=== PATIENT | female | born 1995 | race Hispanic/Latino ===

== ENCOUNTER 2017-06-28 11:49 | Inpatient (IN) | payer BC ==
[2017-06-28] MEDS ORDERED: Sodium Chloride 0.9% 1,000 ML IV STA (12:44)
[2017-06-28] MEDS ORDERED: Iohexol 240 (50 ml) PO STA (12:45)
[2017-06-28] MEDS ORDERED: Iohexol 240 (50 ml) ONE (12:53)
--- NOTE | 2017-06-28 12:54 | ED PDOC ---
HPI: Abdomen Time Seen by Provider: 06/28/17 12:33 Chief Complaint (Nursing): Abdominal Pain Chief Complaint (Provider): Right Lower Quadrant Abdominal Pain History Per: Patient History/Exam Limitations: no limitations Onset/Duration Of Symptoms: Days (x1) Current Symptoms Are (Timing): Constant Location Of Pain/Discomfort: RLQ Quality Of Discomfort: "Pain" Associated Symptoms: Nausea, Vomiting, Diarrhea Exacerbating Factors: None Alleviating Factors: None Additional Complaint(s): 22 year old female presents to the ED complaining of constant right lower quadrant abdominal pain. The patient states that her pain began yesterday and has been consistent till now and radiates to her right lower back. She reports that she was seen at urgent care ([facility]) and told to present to the emergency department for evaluation of her appendix. Patient also notes some nausea, vomiting and diarrhea(non bloody, watery). Denies fever, chest pain, shortness of breath, back pain, dysuria, vaginal bleeding, pelvic pain, vaginal discharge. Abnormal Vaginal Bleeding: No Past Medical History Reviewed: Historical Data, Nursing Documentation, Vital Signs Vital Signs: Last Vital Signs Temp 98.4 F 06/28/17 12:01 Pulse 90 06/28/17 12:01 Resp 16 06/28/17 12:01 BP 136/94 H 06/28/17 12:01 Pulse Ox 97 06/28/17 12:59 - Medical History PMH: No Chronic Diseases - Surgical History Surgical History: No Surg Hx - Family History Family History: States: Unknown Family Hx - Social History Current smoker - smoking cessation education provided: No Ex-Smoker (has not smoked in the last 12 months): No Alcohol: Social Drugs: Denies - Allergies Allergies/Adverse Reactions: Allergies Allergy/AdvReac Type Severity Reaction Status Date / Time No Known Allergies Allergy Verified 06/28/17 12:44 Review of Systems ROS Statement: Except As Marked, All Systems Reviewed And Found Negative Constitutional: Negative for: Fever Cardiovascular: Negative for: Chest Pain Respiratory: Negative for: Shortness of Breath Gastrointestinal: Positive for: Nausea, Vomiting, Abdominal Pain (Riht lower quadrant), Diarrhea Genitourinary Female: Negative for: Dysuria, Vaginal Discharge, Vaginal Bleeding , Pelvic Pain Musculoskeletal: Negative for: Back Pain Physical Exam - Reviewed Nursing Documentation Reviewed: Yes Vital Signs Reviewed: Yes - Physical Exam Appears: Positive for: Non-toxic, No Acute Distress Head Exam: Positive for: ATRAUMATIC, NORMAL INSPECTION, NORMOCEPHALIC Skin: Positive for: Normal Color, Warm, Dry. Negative for: Rash Eye Exam: Positive for: Normal appearance, EOMI, PERRL. Negative for: Nystagmus ENT: Positive for: Normal ENT Inspection. Negative for: Nasal Congestion, Tonsillar Exudate Neck: Positive for: Normal, Painless ROM, Supple Cardiovascular/Chest: Positive for: Regular Rate, Rhythm, Chest Non Tender. Negative for: Tachycardia Respiratory: Positive for: Normal Breath Sounds. Negative for: Rales, Rhonchi, Wheezing, Respiratory Distress Gastrointestinal/Abdominal: Positive for: Bowel Sounds, Soft, Tenderness ( tenderness to right lower quadrant and right lower pelvis). Negative for: Guarding, Rebound Back: Positive for: Normal Inspection. Negative for: L CVA Tenderness, R CVA Tenderness Extremity: Positive for: Normal ROM. Negative for: Tenderness, Deformity, Swelling Neurologic/Psych: Positive for: Alert, Oriented - Laboratory Results Result Diagrams: 06/28/17 13:00 06/28/17 13:00 Interpretation Of Abn Labs: no acute - ECG O2 Sat by Pulse Oximetry: 97 (RA) Pulse Ox Interpretation: Normal - CT Scan/US ct Other Rad Studies (CT/US): Read By Radiologist Other Rad Interpretation: appendix not visualized - Progress ED Course And Treament: 1651: Spoke with surgery. Will consult. Pt. with no antibiotics and will continue monitoring. Spoke with Dr. Johnson. Will admit medsurg. Medical Decision Making Medical Decision Makin Initial Impression 22 year old female presenting with right lower quadrant abdominal pain Initial Plan: * CMP * Udip * CBC * NS 200ml IV 200mls/hr * Pepcid 10mg IVP * US Abdomen Limited * Reevaluation Documented by Danya Campo acting as a scribe for Darryn Zarco MD. All medical record entries made by the Scribe were at my direction and personally dictated by me. I have reviewed the chart and agree that the record accurately reflects my personal performance of the history, physical exam, medical decision making, and the department course for this patient. I have also personally directed, reviewed, and agree with the discharge instructions and disposition. Disposition - Clinical Impression Clinical Impression: Abdominal pain - Patient ED Disposition Is Patient to be Admitted: Yes Counseled Patient/Family Regarding: Studies Performed, Diagnosis - Disposition Disposition Time: 16:55 Condition: FAIR - POA Present On Arrival: None
[2017-06-28] MEDS ORDERED: Iohexol 300 100 ML IJ ONE (13:06)
[2017-06-28] MEDS ORDERED: Sodium Chloride 0.9% 100 ML ONE (13:06)
[2017-06-28 13:19] LABS: BASO % 0.5 % (0.0-2.0); EOS % 0.4 % (0.0-4.0); HEMOGLOBIN 13.3 g/dL (12.0-16.0); LYMPH # 1.8 K/uL (1.0-4.3); LYMPH % 21.8 % (20.0-40.0); MEAN CELL VOLUME 95.3 fl (81.0-99.0); MEAN CORPUSCULAR HGB CONC 34.6 g/dL (33.0-37.0); MEAN PLATELET VOLUME 8.2 fl (7.2-11.7); MONO # 0.5 K/uL (0.0-0.8); MONO % 6.3 % (0.0-10.0); NEUT # 5.9 K/uL (1.8-7.0); RBC 4.02 Mil/uL (3.80-5.20); RED CELL DISTRIBUTION WIDTH 12.3 % (11.5-14.5); WHITE BLOOD COUNT 8.2 K/uL (4.8-10.8)
[2017-06-28 13:35] LABS: ALB/GLOB RATIO 1.5 (1.0-2.1); ALBUMIN 4.5 g/dL (3.5-5.0); ALT/SGPT 25 U/L (9-52); AST/SGOT 22 U/L (14-36); BLOOD UREA NITROGEN 12 mg/dl (7-17); CALCIUM 9.3 mg/dL (8.4-10.2); GFR AFRICAN-AMERICAN > 60; GFR NON-AFRICAN AMERICAN > 60
--- NOTE | 2017-06-28 14:33 | US ---
HISTORY: Vaginal bleeding COMPARISON: No prior study available TECHNIQUE: Transvaginal sonographic evaluation of the pelvis. The FINDINGS: UTERUS: Uterus is anteverted retroverted measuring approximately 6.1 x 3.9 x 4.7 cm. Normal in size and appearance. No fibroid or other mass lesion seen. ENDOMETRIUM: Measures 5 mm in diameter. Unremarkable. CERVIX: No cervical abnormality identified. RIGHT OVARY: Prominent right ovary measuring approximately 6.8 x 2.6 x 3.7 cm. No solid mass. Normal flow. LEFT OVARY: Measures 3.8 x 2.0 x 3.7 prominent cm. No solid mass. Normal flow. . There is a small apparent paraovarian cyst measuring approximately 1.4 x 1.5 x 1.3 cm. FREE FLUID: Free fluid is present within the cul de sac. OTHER FINDINGS: None. IMPRESSION: Prominent right ovary. Small apparent paraovarian cyst left ovary. Free fluid is present within the cul de sac.
--- NOTE | 2017-06-28 15:56 | CT ---
PROCEDURE: CT scan abdomen and pelvis dated 06/28/2017 HISTORY: Abdominal pain COMPARISON: None. TECHNIQUE: Contiguous axial images of the abdomen and pelvis performed following oral and intravenous injection of approximately 98 cc of Omnipaque 300 contrast material. En. Coronal and Sagittal reformats generated. Radiation dose: Total exam DLP = 706.55 mGy-cm This CT exam was performed using one or more of the following dose reduction techniques: Automated exposure control, adjustment of the mA and/or kV according to patient size, and/or use of iterative reconstruction technique. FINDINGS: LOWER THORAX: Lung bases clear. No infiltrate effusion or basilar pneumothorax. There is a tiny hiatal hernia. Heart size normal. No significant pericardial effusion. LIVER: Liver exhibits normal size measuring approximately 16.7 cm in CC dimension. Note is made of a tiny area low attenuation inferior tip of the right lobe liver that probably represents streak and beam hardening artifact arising from dense oral contrast material within the adjacent colon. Minor diffuse fatty hepatic infiltration. . Portal and splenic veins are opacified. GALLBLADDER AND BILE DUCTS: Gallbladder is physiologically distended. No evidence of intraluminal gallbladder calculi. PANCREAS: Pancreas appears grossly unremarkable. SPLEEN: Spleen is unremarkable. No evidence of masses collections or calcifications. ADRENALS: There are no adrenal lesions. KIDNEYS AND URETERS: Is demonstrate symmetric nephrograms. No evidence of nephrolithiasis or hydronephrosis. BLADDER: Urinary bladder is physiologically distended. No evidence of intraluminal urinary bladder calculi. REPRODUCTIVE: Uterus appears grossly unremarkable. There is a moderate amount of free fluid in the pelvis which exhibits Hounsfield units in the upper 30s suggesting proteinaceous content. Rule out residual old hemorrhagic ovarian cyst. Rule out APPENDIX: The appendix is not seen with any certainty. Correlation with history physical exam and laboratory values recommended as the possibility of an acute appendicitis cannot be excluded based on this exam. BOWEL: Evaluation of the bowel is limited due to incomplete opacification. The stomach is distended with oral contrast material and air. Visualized loops of small bowel exhibit normal contour and caliber. No evidence acute mechanical small bowel obstruction. PERITONEUM: Unremarkable. No fluid collection. No free air. LYMPH NODES: Several small mesenteric lymph nodes seen right lower quadrant of the abdomen. Rule out mesenteric adenitis. VASCULATURE: Unremarkable. No aortic aneurysm. BONES: No fracture or destructive lesion. OTHER FINDINGS: None. IMPRESSION: There is a moderate to large amount of free fluid within the pelvis that exhibits Hounsfield units in the low 30s suggesting proteinaceous content. Rule out hemorrhagic ovarian cyst. The appendix is not seen with certainty on this exam. Correlation with history, physical exam and laboratory values recommended as the possibility of an acute appendicitis cannot be excluded on this exam. There are a few small lymph nodes right lower quadrant of the abdomen suggesting underlying mild mesenteric adenitis Mild fatty hepatic infiltration. Findings discussed with Dr. Zarco at approximately 3:52 p.m. with written down and read back verification.
--- NOTE | 2017-06-28 17:47 | CP.PCM.CON ---
<Ric Ochoa - Last Filed: 06/28/17 18:00> History of Present Illness - History of Present Illness History of Present Illness: General Surgery: Dr Lu Pt is a 22F with no PMH who presents with >24 hours of RLQ abdominal pain. Pt states initially she thought pain was menstrual cramping as her LMP terminated yesterday, however pain persisted and intensified through the day. Pt visited urgent care where she was sent to ED for evaluation to r/o appendicitis. Pt reports 2 episodes of emesis, yellow, and previous food. Denies any further N/V , F/C. Having normal bowel movements. States she is hungry. At time of examination pain has significantly improved. PMH: none PSH: knee arthroscopy Review of Systems - Review of Systems All systems: reviewed and no additional remarkable complaints except (as per hpi ) Past Patient History - Past Social History Alcohol: Social Drugs: Denies - PSYCHIATRIC Hx Substance Use: No - SURGICAL HISTORY Other/Comment: lt knee SX - ANESTHESIA Hx Anesthesia: Yes Hx Anesthesia Reactions: No Meds Allergies/Adverse Reactions: Allergies Allergy/AdvReac Type Severity Reaction Status Date / Time No Known Allergies Allergy Verified 06/28/17 12:44 Physical Exam - Constitutional Appears: Non-toxic, No Acute Distress - Head Exam Head Exam: NORMAL INSPECTION - Eye Exam Eye Exam: Normal appearance - ENT Exam ENT Exam: Mucous Membranes Moist - Respiratory Exam Respiratory Exam: absent: Accessory Muscle Use, Respiratory Distress - Cardiovascular Exam Cardiovascular Exam: REGULAR RHYTHM. absent: Tachycardia - GI/Abdominal Exam GI & Abdominal Exam: Soft, Tenderness (RLQ but minimal). absent: Distended, Firm, Guarding, Hernia - Extremities Exam Extremities exam: Negative for: pedal edema - Neurological Exam Neurological exam: Alert, Oriented x3 - Psychiatric Exam Psychiatric exam: Normal Affect, Normal Mood - Skin Skin Exam: Normal Color, Warm Results - Vital Signs Recent Vital Signs: Last Vital Signs Temp 98.4 F 06/28/17 12:01 Pulse 90 06/28/17 12:01 Resp 16 06/28/17 12:01 BP 136/94 H 06/28/17 12:01 Pulse Ox 97 06/28/17 17:09 - Labs Result Diagrams: 06/28/17 13:00 06/28/17 13:00 Labs: Laboratory Results - last 24 hr 06/28/17 06/28/17 13:00 13:00 WBC 8.2 RBC 4.02 Hgb 13.3 Hct 38.4 MCV 95.3 MCH 33.0 H MCHC 34.6 RDW 12.3 Plt Count 238 MPV 8.2 Neut % (Auto) 71.0 Lymph % (Auto) 21.8 [place] % (Auto) 6.3 Eos % (Auto) 0.4 Baso % (Auto) 0.5 Neut # (Auto) 5.9 Lymph # (Auto) 1.8 [place] # (Auto) 0.5 Eos # (Auto) 0.0 Baso # (Auto) 0.0 Sodium 142 Potassium 4.1 Chloride 106 Carbon Dioxide 25 Anion Gap 15 BUN 12 Creatinine 0.7 Est GFR ( Amer) > 60 Est GFR (Non-Af Amer) > 60 Random Glucose 88 Calcium 9.3 Total Bilirubin 0.9 AST 22 ALT 25 Alkaline Phosphatase 55 Total Protein 7.4 Albumin 4.5 Globulin 2.9 Albumin/Globulin Ratio 1.5 Assessment & Plan - Assessment and Plan (Free Text) Assessment: 22F w/ RLQ pain; r/o appendicitis Plan: CT scan reviewed by myself and attending pain has nearly resolved no leukocytosis appendicitis unlikely pt admitted for observation recc Receptionist Nurse consult for evaluation of prominent right ovary, possibly ruptured maintain NPO until tomorrow d/w Dr Lu who has seen and evaluated pt Don, PGY3 <Joshua Lu - Last Filed: 06/28/17 18:12> History of Present Illness - History of Present Illness History of Present Illness: Patient was seen and examined at the bedside. Agree with resident's note above. Meds - Medications Medications: Current Medications Sodium Chloride (Sodium Chloride 0.9%) 1,000 mls @ 100 mls/hr IV .Q10H MIKO Stop: 06/29/17 18:03 Ketorolac Tromethamine (Toradol) 15 mg IVP Q6 PRN PRN Reason: Pain, Mild (1-3) Results - Vital Signs Recent Vital Signs: Last Vital Signs Temp 98.4 F 06/28/17 12:01 Pulse 90 06/28/17 12:01 Resp 16 06/28/17 12:01 BP 136/94 H 06/28/17 12:01 Pulse Ox 97 03/03/18 17:09 - Labs Result Diagrams: 06/28/17 13:00 06/28/17 13:00 Labs: Laboratory Results - last 24 hr 06/28/17 06/28/17 13:00 13:00 WBC 8.2 RBC 4.02 Hgb 13.3 Hct 38.4 MCV 95.3 MCH 33.0 H MCHC 34.6 RDW 12.3 Plt Count 238 MPV 8.2 Neut % (Auto) 71.0 Lymph % (Auto) 21.8 [place] % (Auto) 6.3 Eos % (Auto) 0.4 Baso % (Auto) 0.5 Neut # (Auto) 5.9 Lymph # (Auto) 1.8 [place] # (Auto) 0.5 Eos # (Auto) 0.0 Baso # (Auto) 0.0 Sodium 142 Potassium 4.1 Chloride 106 Carbon Dioxide 25 Anion Gap 15 BUN 12 Creatinine 0.7 Est GFR ( Amer) > 60 Est GFR (Non-Af Amer) > 60 Random Glucose 88 Calcium 9.3 Total Bilirubin 0.9 AST 22 ALT 25 Alkaline Phosphatase 55 Total Protein 7.4 Albumin 4.5 Globulin 2.9 Albumin/Globulin Ratio 1.5 - Imaging and Cardiology CT scan - abdomen Status: Image reviewed by me, Report reviewed by me Assessment & Plan - Assessment and Plan (Free Text) Plan: - Repeat labs in am
[2017-06-28] MEDS: Sodium Chloride 0.9% 1,000 ML IV SCH ×2 (18:15→19:30)
[2017-06-29] MEDS: Sodium Chloride 0.9% 1,000 ML IV SCH ×2 (06:54→15:25)
[2017-06-29 07:01] LABS: BASO % 0.7 % (0.0-2.0); EOS # 0.1 K/uL (0.0-0.7); EOS % 1.4 % (0.0-4.0); HEMOGLOBIN 11.4 g/dL (12.0-16.0); LYMPH # 2.3 K/uL (1.0-4.3); LYMPH % 46.9 % (20.0-40.0); MEAN CELL VOLUME 96.4 fl (81.0-99.0); MEAN CORPUSCULAR HEMOGLOBIN 33.1 pg (27.0-31.0); MEAN CORPUSCULAR HGB CONC 34.3 g/dL (33.0-37.0); MONO # 0.5 K/uL (0.0-0.8); NRBC % 0.1 % (0.0-0.0); RBC 3.44 Mil/uL (3.80-5.20); RED CELL DISTRIBUTION WIDTH 12.6 % (11.5-14.5); WHITE BLOOD COUNT 4.8 K/uL (4.8-10.8)
[2017-06-29 07:09] LABS: BLOOD UREA NITROGEN 15 mg/dl (7-17); CALCIUM 8.7 mg/dL (8.4-10.2); GFR AFRICAN-AMERICAN > 60; GFR NON-AFRICAN AMERICAN > 60; HDL CHOLESTEROL 55 MG/DL (30-70)
[2017-06-29 07:17] LABS: LDL CHOLESTEROL 83 mg/dL (0-129)
[2017-06-29 07:22] LABS: T4 6.44 ug/dl (5.5-11.0)
[2017-06-29 07:35] LABS: T3 0.964 nmol/L (1.49-2.60)
[2017-06-29 08:53] LABS: SQUAMOUS EPITHIAL 10 /hpf (0-5); URINE BACTERIA FEW (<OCC); URINE BILIRUBIN NEGATIVE (NEGATIVE); URINE BLOOD MODERATE (NEGATIVE); URINE CLARITY CLOUDY (Clear); URINE COLOR YELLOW (YELLOW); URINE GLUCOSE (UA) NEG (Normal); URINE LEUKOCYTE ESTERASE MOD Leu/uL (Negative); URINE NITRATE NEGATIVE (NEGATIVE); URINE PROTEIN 30 mg/dL (NEGATIVE); URINE UROBILINOGEN 0.2-1.0 mg/dL (0.2-1.0)
[2017-06-29] MEDS ORDERED: Influenza Vaccine 18yr & older 0.5 ML/45 MCG SYR IM ONE (09:00)
--- NOTE | 2017-06-29 09:18 | CP.PCM.PN ---
<Vannessa Pandey - Last Filed: 06/29/17 09:15> Subjective - Date & Time of Evaluation Date of Evaluation: 06/29/17 Time of Evaluation: 09:15 - Subjective Subjective: Surgery: Dr. Lu Pt seen and examined. No acute overnight events. Pt states she feels better but still has some pain in the RLQ radiating to her pelvis/flank. She denies any episodes of N/V overnight. Denies F/C. States she's hungry and would like to eat. Objective - Vital Signs/Intake and Output Vital Signs (last 24 hours): Temp Pulse Resp BP Pulse Ox 98.5 F 80 20 109/68 98 06/29/17 08:11 06/29/17 08:11 06/29/17 08:11 06/29/17 08:11 06/29/17 08:11 - Medications Medications: Current Medications Sodium Chloride (Sodium Chloride 0.9%) 1,000 mls @ 100 mls/hr IV .Q10H MIKO Stop: 06/29/17 18:03 Last Admin: 06/29/17 06:54 Dose: 100 mls/hr Ketorolac Tromethamine (Toradol) 15 mg IVP Q6 PRN PRN Reason: Pain, Mild (1-3) Last Admin: 06/29/17 07:06 Dose: 15 mg Morphine Sulfate (Morphine) 2 mg IVP Q4 PRN PRN Reason: Pain, moderate (4-7) - Labs Labs: 06/29/17 05:30 06/29/17 05:30 - Constitutional Appears: Well, No Acute Distress - Head Exam Head Exam: ATRAUMATIC, NORMOCEPHALIC - ENT Exam ENT Exam: Mucous Membranes Moist - Respiratory Exam Respiratory Exam: NORMAL BREATHING PATTERN - Cardiovascular Exam Cardiovascular Exam: RRR - GI/Abdominal Exam GI & Abdominal Exam: Soft. absent: Distended, Guarding, Tenderness - Neurological Exam Neurological Exam: Alert, Awake, Oriented x3 - Skin Skin Exam: Dry, Warm Assessment and Plan - Assessment and Plan (Free Text) Assessment: 22F with RLQ abdominal pain likely 2/2 ruptured ovarian cyst. Surgery consulted to r/o appendicitis. Plan: - start diet - f/u extern eval/recs - encourage ambulation - no gen surg intervention needed at this time - discussed with Dr. Lu who agrees with above Vannessa Pandey, PGY-3 <Joshua Lu - Last Filed: 06/29/17 16:18> Subjective - Date & Time of Evaluation Time of Evaluation: 16:00 - Subjective Subjective: Patient was seen and examined at the bedside. Agree with resident's note above. Objective - Vital Signs/Intake and Output Vital Signs (last 24 hours): Temp Pulse Resp BP Pulse Ox 98.2 F 69 18 113/75 97 06/29/17 15:59 06/29/17 15:59 06/29/17 15:59 06/29/17 15:59 06/29/17 15:59 - Medications Medications: Current Medications Sodium Chloride (Sodium Chloride 0.9%) 1,000 mls @ 100 mls/hr IV .Q10H MIKO Stop: 06/29/17 18:03 Last Admin: 06/29/17 15:25 Dose: 100 mls/hr Ceftriaxone Sodium 2 gm/ (Sodium Chloride) 100 mls @ 100 mls/hr IVPB DAILY MIKO PRN Reason: Protocol Ketorolac Tromethamine (Toradol) 15 mg IVP Q6 PRN PRN Reason: Pain, Mild (1-3) Last Admin: 06/29/17 07:06 Dose: 15 mg Morphine Sulfate (Morphine) 2 mg IVP Q4 PRN PRN Reason: Pain, moderate (4-7) Last Admin: 06/29/17 15:16 Dose: 2 mg - Labs Labs: 06/29/17 05:30 06/29/17 05:30 Assessment and Plan - Assessment and Plan (Free Text) Plan: - No general surgery intervention at present time - Regular diet - Treat UTI - Continue care as per medical team - General surgery will sign off - Patient is clear for discharge from the general surgery stand point - Please re-consult as needed
--- NOTE | 2017-06-29 11:26 | CP.PCM.CON ---
<Vikash Amin - Last Filed: 06/29/17 11:50> History of Present Illness - History of Present Illness History of Present Illness: FILLING LAYER UP/OB Consult note: 22 y/o female with no PMH admitted to [facility] for 2 days hx of RLQ pain, pain was 6 /10, constant, radiating to right flank and back, associated with nausea, vomiting and diarrhea. Denies fever, SOB, Dizziness, chest pain, urinary symptoms or left side abdominal pain. PMH: Denies PSH: knee arthroscopy Allg; NKDA LMP: Ended on 06/27/17, normal SH: Occasional alcohol use FH: denies ED Course: CMP, CBC, CT abdo, TV u/s, UA Review of Systems - Constitutional Constitutional: absent: Weakness - EENT Eyes: absent: Blurred Vision Ears: absent: Ear Discharge, Dizziness Nose/Mouth/Throat: absent: Epistaxis, Nasal Congestion - Cardiovascular Cardiovascular: absent: Chest Pain - Respiratory Respiratory: absent: Cough, Dyspnea - Gastrointestinal Gastrointestinal: Abdominal Pain (RLQ) - Genitourinary Genitourinary: absent: Change in Urinary Stream, Urinary Urgency Past Patient History - Past Medical History & Family History Past Medical History?: No - Past Social History Smoking Status: Never Smoked - HEMATOLOGICAL/ONCOLOGICAL Hx AIDS: No Hx Human Immunodeficiency Virus (HIV): No - MUSCULOSKELETAL/RHEUMATOLOGICAL Hx Falls: No - PSYCHIATRIC Hx Substance Use: No - SURGICAL HISTORY Hx Surgeries: Yes Other/Comment: lt knee arthroscopy - ANESTHESIA Hx Anesthesia: Yes Hx Anesthesia Reactions: No Meds Allergies/Adverse Reactions: Allergies Allergy/AdvReac Type Severity Reaction Status Date / Time No Known Allergies Allergy Verified 06/28/17 12:44 - Medications Medications: Current Medications Sodium Chloride (Sodium Chloride 0.9%) 1,000 mls @ 100 mls/hr IV .Q10H MIKO Stop: 06/29/17 18:03 Last Admin: 06/29/17 06:54 Dose: 100 mls/hr Ketorolac Tromethamine (Toradol) 15 mg IVP Q6 PRN PRN Reason: Pain, Mild (1-3) Last Admin: 06/29/17 07:06 Dose: 15 mg Morphine Sulfate (Morphine) 2 mg IVP Q4 PRN PRN Reason: Pain, moderate (4-7) Last Admin: 06/29/17 09:26 Dose: 2 mg Physical Exam - Constitutional Appears: No Acute Distress - Head Exam Head Exam: ATRAUMATIC, NORMAL INSPECTION, NORMOCEPHALIC - Eye Exam Eye Exam: Normal appearance, PERRL Pupil Exam: NORMAL ACCOMODATION - ENT Exam ENT Exam: Mucous Membranes Moist - Neck Exam Neck exam: Positive for: Full Rom - Respiratory Exam Respiratory Exam: Clear to Auscultation Bilateral, NORMAL BREATHING PATTERN. absent: Accessory Muscle Use, Chest Wall Tenderness - Cardiovascular Exam Cardiovascular Exam: REGULAR RHYTHM - GI/Abdominal Exam GI & Abdominal Exam: Normal Bowel Sounds, Soft, Tenderness (Mild tenderness RLQ) . absent: Distended, Rebound, Rigid - Extremities Exam Extremities exam: Positive for: normal capillary refill, normal inspection. Negative for: calf tenderness - Back Exam Back exam: absent: CVA tenderness (L), CVA tenderness (R) - Neurological Exam Neurological exam: Alert, CN II-XII Intact, Oriented x3 - Psychiatric Exam Psychiatric exam: Anxious - Skin Skin Exam: Dry, Intact, Normal Color Results - Vital Signs Recent Vital Signs: Last Vital Signs Temp 98.5 F 06/29/17 08:11 Pulse 80 06/29/17 08:11 Resp 20 06/29/17 08:11 BP 109/68 06/29/17 08:11 Pulse Ox 98 06/29/17 08:11 - Labs Result Diagrams: 06/29/17 05:30 06/29/17 05:30 Labs: Laboratory Results - last 24 hr 06/28/17 06/28/17 06/29/17 13:00 13:00 05:30 WBC 8.2 RBC 4.02 Hgb 13.3 Hct 38.4 MCV 95.3 MCH 33.0 H MCHC 34.6 RDW 12.3 Plt Count 238 MPV 8.2 Neut % (Auto) 71.0 Lymph % (Auto) 21.8 [place] % (Auto) 6.3 Eos % (Auto) 0.4 Baso % (Auto) 0.5 Neut # (Auto) 5.9 Lymph # (Auto) 1.8 [place] # (Auto) 0.5 Eos # (Auto) 0.0 Baso # (Auto) 0.0 Sodium 142 143 Potassium 4.1 4.0 Chloride 106 108 H Carbon Dioxide 25 24 Anion Gap 15 15 BUN 12 15 Creatinine 0.7 0.7 Est GFR ( Amer) > 60 > 60 Est GFR (Non-Af Amer) > 60 > 60 Random Glucose 88 75 Calcium 9.3 8.7 Total Bilirubin 0.9 AST 22 ALT 25 Alkaline Phosphatase 55 Total Protein 7.4 Albumin 4.5 Globulin 2.9 Albumin/Globulin Ratio 1.5 Triglycerides 71 Cholesterol 155 LDL Cholesterol Direct 83 HDL Cholesterol 55 Thyroxine (T4) 6.44 Total T3 0.964 L TSH 3rd Generation 2.55 Urine Color Urine Clarity Urine pH Ur Specific [place] Urine Protein Urine Glucose (UA) Urine Ketones Urine Blood Urine Nitrate Urine Bilirubin Urine Urobilinogen Ur Leukocyte Esterase Urine RBC (Auto) Urine Microscopic WBC Ur Squamous Epith Cells Urine Bacteria 06/29/17 06/29/17 05:30 08:00 WBC 4.8 RBC 3.44 L Hgb 11.4 L Hct 33.1 L MCV 96.4 MCH 33.1 H MCHC 34.3 RDW 12.6 Plt Count 206 MPV 8.0 Neut % (Auto) 41.0 L Lymph % (Auto) 46.9 H [place] % (Auto) 10.0 Eos % (Auto) 1.4 Baso % (Auto) 0.7 Neut # (Auto) 2.0 Lymph # (Auto) 2.3 [place] # (Auto) 0.5 Eos # (Auto) 0.1 Baso # (Auto) 0.0 Sodium Potassium Chloride Carbon Dioxide Anion Gap BUN Creatinine Est GFR ( Amer) Est GFR (Non-Af Amer) Random Glucose Calcium Total Bilirubin AST ALT Alkaline Phosphatase Total Protein Albumin Globulin Albumin/Globulin Ratio Triglycerides Cholesterol LDL Cholesterol Direct HDL Cholesterol Thyroxine (T4) Total T3 TSH 3rd Generation Urine Color Yellow Urine Clarity Cloudy Urine pH 6.0 Ur Specific [place] 1.049 H Urine Protein 30 Urine Glucose (UA) Neg Urine Ketones 20 Urine Blood Moderate Urine Nitrate Negative Urine Bilirubin Negative Urine Urobilinogen 0.2-1.0 Ur Leukocyte Esterase Mod Urine RBC (Auto) 7 H Urine Microscopic WBC 32 H Ur Squamous Epith Cells 10 H Urine Bacteria Few H Assessment & Plan - Assessment and Plan (Free Text) Assessment: A/P: 22 y/o female with no PMH admitted to hospital for evaluation and treatment of RLQ abdominal pain associated with nausea, and vomiting. FILLING LAYER UP consulted to r/o FILLING LAYER UP pathology. RLQ abdominal pain secondary due to appendicitis vs ruptured ovarian cyst vs unknown etiology - Afebrile - WBC: 4.8 - UA negative for Nitrate - CT abd/Pelvic: free fluid in pelvis - U/S TV: Prominent right ovary, small paraovarian left ovary cyst - Continue pain management - No FILLING LAYER UP pathology - Continue management per admitting team and surgery Case d/w Dr. Collier <Shari Collier - Last Filed: 06/29/17 12:23> Meds - Medications Medications: Current Medications Sodium Chloride (Sodium Chloride 0.9%) 1,000 mls @ 100 mls/hr IV .Q10H MIKO Stop: 06/29/17 18:03 Last Admin: 06/29/17 06:54 Dose: 100 mls/hr Ketorolac Tromethamine (Toradol) 15 mg IVP Q6 PRN PRN Reason: Pain, Mild (1-3) Last Admin: 06/29/17 07:06 Dose: 15 mg Morphine Sulfate (Morphine) 2 mg IVP Q4 PRN PRN Reason: Pain, moderate (4-7) Last Admin: 06/29/17 09:26 Dose: 2 mg Results - Vital Signs Recent Vital Signs: Last Vital Signs Temp 98.5 F 06/29/17 08:11 Pulse 80 06/29/17 08:11 Resp 20 06/29/17 08:11 BP 109/68 06/29/17 08:11 Pulse Ox 98 06/29/17 08:11 - Labs Result Diagrams: 06/29/17 05:30 06/29/17 05:30 Labs: Laboratory Results - last 24 hr 06/28/17 06/28/17 06/29/17 13:00 13:00 05:30 WBC 8.2 RBC 4.02 Hgb 13.3 Hct 38.4 MCV 95.3 MCH 33.0 H MCHC 34.6 RDW 12.3 Plt Count 238 MPV 8.2 Neut % (Auto) 71.0 Lymph % (Auto) 21.8 [place] % (Auto) 6.3 Eos % (Auto) 0.4 Baso % (Auto) 0.5 Neut # (Auto) 5.9 Lymph # (Auto) 1.8 [place] # (Auto) 0.5 Eos # (Auto) 0.0 Baso # (Auto) 0.0 Sodium 142 143 Potassium 4.1 4.0 Chloride 106 108 H Carbon Dioxide 25 24 Anion Gap 15 15 BUN 12 15 Creatinine 0.7 0.7 Est GFR ( Amer) > 60 > 60 Est GFR (Non-Af Amer) > 60 > 60 Random Glucose 88 75 Calcium 9.3 8.7 Total Bilirubin 0.9 AST 22 ALT 25 Alkaline Phosphatase 55 Total Protein 7.4 Albumin 4.5 Globulin 2.9 Albumin/Globulin Ratio 1.5 Triglycerides 71 Cholesterol 155 LDL Cholesterol Direct 83 HDL Cholesterol 55 Thyroxine (T4) 6.44 Total T3 0.964 L TSH 3rd Generation 2.55 Urine Color Urine Clarity Urine pH Ur Specific [place] Urine Protein Urine Glucose (UA) Urine Ketones Urine Blood Urine Nitrate Urine Bilirubin Urine Urobilinogen Ur Leukocyte Esterase Urine RBC (Auto) Urine Microscopic WBC Ur Squamous Epith Cells Urine Bacteria 06/29/17 06/29/17 05:30 08:00 WBC 4.8 RBC 3.44 L Hgb 11.4 L Hct 33.1 L MCV 96.4 MCH 33.1 H MCHC 34.3 RDW 12.6 Plt Count 206 MPV 8.0 Neut % (Auto) 41.0 L Lymph % (Auto) 46.9 H [place] % (Auto) 10.0 Eos % (Auto) 1.4 Baso % (Auto) 0.7 Neut # (Auto) 2.0 Lymph # (Auto) 2.3 [place] # (Auto) 0.5 Eos # (Auto) 0.1 Baso # (Auto) 0.0 Sodium Potassium Chloride Carbon Dioxide Anion Gap BUN Creatinine Est GFR ( Amer) Est GFR (Non-Af Amer) Random Glucose Calcium Total Bilirubin AST ALT Alkaline Phosphatase Total Protein Albumin Globulin Albumin/Globulin Ratio Triglycerides Cholesterol LDL Cholesterol Direct HDL Cholesterol Thyroxine (T4) Total T3 TSH 3rd Generation Urine Color Yellow Urine Clarity Cloudy Urine pH 6.0 Ur Specific [place] 1.049 H Urine Protein 30 Urine Glucose (UA) Neg Urine Ketones 20 Urine Blood Moderate Urine Nitrate Negative Urine Bilirubin Negative Urine Urobilinogen 0.2-1.0 Ur Leukocyte Esterase Mod Urine RBC (Auto) 7 H Urine Microscopic WBC 32 H Ur Squamous Epith Cells 10 H Urine Bacteria Few H Assessment & Plan - Assessment and Plan (Free Text) Assessment: Addendum by Dr. Collier - I have evaluated the patient independently and I agree with the above. - Date & Time Date: 06/29/17 Time: 12:22
[2017-06-29] MEDS: cefTRIAXone 2 GM in Sodium Chloride 0.9% 100 ML IVPB SCH (17:04)
--- NOTE | 2017-06-29 17:22 | CP.PCM.HP ---
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 PMHx no chronic disease SHx L Knee Arthroscopy CT Abd -Pelvis : moderate to large amount of free fluid in the pelvis , Appendix not seen , few small lymph nodes RLQ suggesting mild mesenteric adenitis . 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 RLQ pain r /o AP , r/o rupture ovarian cyst , r/o unknown etiology WBC 4.8 , U/A leuk est mod , wbc 32 Present on Admission - Present on Admission Any Indicators Present on Admission: No Review of Systems - Constitutional Constitutional: Other (neg) - EENT Eyes: Other (neg) Nose/Mouth/Throat: Other (neg) - Cardiovascular Cardiovascular: Other (neg) - Respiratory Respiratory: Other (neg) - Gastrointestinal Gastrointestinal: Abdominal Pain, Diarrhea, Nausea, Vomiting - Genitourinary Genitourinary: Other (neg) - Musculoskeletal Additional comments: R Flank pain - Integumentary Integumentary: Other (neg) - Neurological Neurological: Other (neg) - Endocrine Endocrine: Other (neg) - Hematologic/Lymphatic Hematologic: Other (neg) Past Patient History - Past Medical History & Family History Past Medical History?: No - Past Social History Smoking Status: Never Smoked Alcohol: Social - CARDIAC Hx Cardiac Disorders: No - PULMONARY Hx Respiratory Disorders: No - NEUROLOGICAL Hx Neurological Disorder: No - HEENT Hx HEENT Problems: No - RENAL Hx Chronic Kidney Disease: No - ENDOCRINE/METABOLIC Hx Endocrine Disorders: No - HEMATOLOGICAL/ONCOLOGICAL Hx AIDS: No Hx Human Immunodeficiency Virus (HIV): No - MUSCULOSKELETAL/RHEUMATOLOGICAL Hx Falls: No - GASTROINTESTINAL Hx Gastrointestinal Disorders: No - GENITOURINARY/GYNECOLOGICAL Hx Genitourinary Disorders: No - PSYCHIATRIC Hx Psychophysiologic Disorder: No Hx Substance Use: No - SURGICAL HISTORY Hx Surgeries: Yes Other/Comment: lt knee arthroscopy - ANESTHESIA Hx Anesthesia: Yes Hx Anesthesia Reactions: No Meds Allergies/Adverse Reactions: Allergies Allergy/AdvReac Type Severity Reaction Status Date / Time No Known Allergies Allergy Verified 06/28/17 12:44 Physical Exam - Constitutional Appears: No Acute Distress - Head Exam Head Exam: NORMAL INSPECTION - Eye Exam Eye Exam: PERRL - ENT Exam ENT Exam: Normal Exam - Neck Exam Neck exam: Positive for: Normal Inspection - Respiratory Exam Respiratory Exam: Clear to Auscultation Bilateral, NORMAL BREATHING PATTERN - Cardiovascular Exam Cardiovascular Exam: REGULAR RHYTHM - GI/Abdominal Exam GI & Abdominal Exam: Normal Bowel Sounds, Tenderness (RLQ). absent: Guarding, Rebound - Extremities Exam Extremities exam: Positive for: normal inspection - Back Exam Back exam: CVA tenderness (R) - Neurological Exam Neurological exam: Alert, CN II-XII Intact, Oriented x3 Additional comments: no motor/sensory deficit - Psychiatric Exam Psychiatric exam: Anxious - Skin Skin Exam: Warm Results - Vital Signs Recent Vital Signs: Last Vital Signs Temp 98.2 F 06/29/17 15:59 Pulse 69 06/29/17 15:59 Resp 18 06/29/17 15:59 BP 113/75 06/29/17 15:59 Pulse Ox 97 06/29/17 15:59 - Labs Result Diagrams: 06/29/17 05:30 06/29/17 05:30 Labs: Laboratory Results - last 24 hr 06/29/17 06/29/17 06/29/17 05:30 05:30 08:00 WBC 4.8 RBC 3.44 L Hgb 11.4 L Hct 33.1 L MCV 96.4 MCH 33.1 H MCHC 34.3 RDW 12.6 Plt Count 206 MPV 8.0 Neut % (Auto) 41.0 L Lymph % (Auto) 46.9 H [place] % (Auto) 10.0 Eos % (Auto) 1.4 Baso % (Auto) 0.7 Neut # (Auto) 2.0 Lymph # (Auto) 2.3 [place] # (Auto) 0.5 Eos # (Auto) 0.1 Baso # (Auto) 0.0 Sodium 143 Potassium 4.0 Chloride 108 H Carbon Dioxide 24 Anion Gap 15 BUN 15 Creatinine 0.7 Est GFR ( Amer) > 60 Est GFR (Non-Af Amer) > 60 Random Glucose 75 Calcium 8.7 Triglycerides 71 Cholesterol 155 LDL Cholesterol Direct 83 HDL Cholesterol 55 Thyroxine (T4) 6.44 Total T3 0.964 L TSH 3rd Generation 2.55 Urine Color Yellow Urine Clarity Cloudy Urine pH 6.0 Ur Specific [place] 1.049 H Urine Protein 30 Urine Glucose (UA) Neg Urine Ketones 20 Urine Blood Moderate Urine Nitrate Negative Urine Bilirubin Negative Urine Urobilinogen 0.2-1.0 Ur Leukocyte Esterase Mod Urine RBC (Auto) 7 H Urine Microscopic WBC 32 H Ur Squamous Epith Cells 10 H Urine Bacteria Few H Assessment & Plan (1) Abdominal pain Status: Acute (2) Right flank pain Status: Acute - Assessment and Plan (Free Text) Plan: Morphine , Rocephin , f/u UC-S
[2017-06-30] MEDS: cefTRIAXone 2 GM in Sodium Chloride 0.9% 100 ML IVPB SCH (08:30)
--- NOTE | 2017-06-30 14:51 | CP.PCM.PN ---
Subjective - Date & Time of Evaluation Date of Evaluation: 06/30/17 Time of Evaluation: 12:50 - Subjective Subjective: F/U Abdominal pain. Pt continue with RLQ and flank pain requiring pain medication. Objective - Vital Signs/Intake and Output Vital Signs (last 24 hours): Temp Pulse Resp BP Pulse Ox 98.8 F 72 20 120/77 98 06/30/17 09:00 06/30/17 09:00 06/30/17 09:00 06/30/17 09:00 06/30/17 09:00 - Medications Medications: Current Medications Ceftriaxone Sodium 2 gm/ (Sodium Chloride) 100 mls @ 100 mls/hr IVPB DAILY MIKO PRN Reason: Protocol Last Admin: 06/30/17 08:30 Dose: 100 mls/hr Ketorolac Tromethamine (Toradol) 15 mg IVP Q6 PRN PRN Reason: Pain, Mild (1-3) Last Admin: 06/30/17 12:10 Dose: 15 mg Morphine Sulfate (Morphine) 2 mg IVP Q4 PRN PRN Reason: Pain, moderate (4-7) Last Admin: 06/30/17 12:51 Dose: 2 mg - Labs Labs: 06/29/17 05:30 06/29/17 05:30 - Constitutional Appears: No Acute Distress - Head Exam Head Exam: NORMAL INSPECTION - Eye Exam Eye Exam: PERRL - ENT Exam ENT Exam: Normal Exam - Neck Exam Neck Exam: Normal Inspection - Respiratory Exam Respiratory Exam: Clear to Ausculation Bilateral - Cardiovascular Exam Cardiovascular Exam: REGULAR RHYTHM - GI/Abdominal Exam GI & Abdominal Exam: Tenderness (RLQ, R flank), Normal Bowel Sounds. absent: Guarding, Rebound - Extremities Exam Extremities Exam: Normal Inspection - Back Exam Back Exam: CVA tenderness (R) - Neurological Exam Neurological Exam: Alert, CN II-XII Intact, Oriented x3 Additional comments: No motor/sensory deficit. - Psychiatric Exam Psychiatric exam: Anxious - Skin Skin Exam: Warm Assessment and Plan (1) Abdominal pain Status: Acute (2) Right flank pain Status: Acute - Assessment and Plan (Free Text) Plan: U C-S possible contamination, repeat U C-S, straight cath, continue Rocephin, Pain Management consult, recall LABELER consult.
[2017-07-01 07:47] VITALS: BP 117/78; PULSE 72; RESP 18; TEMP 98.1; O2SAT 96
[2017-07-01] MEDS: cefTRIAXone 2 GM in Sodium Chloride 0.9% 100 ML IVPB SCH (08:45)
--- NOTE | 2017-07-01 08:45 | CON ---
DATE: 06/30/2017 HISTORY OF PRESENT ILLNESS: This is a 22-year-old female who I was called to evaluate for urologic status. The patient came into the hospital several days ago because of some lower abdominal pain. On 06/28/2017, she was admitted and apparently had a CT scan done at that time and the positive findings were more in the reproductive area showed there to be a moderate amount of free fluid in the lower pelvis, which appear to be consistent with proteinaceous fluid and potential for hemorrhagic ovarian cyst. The kidney evaluation demonstrated normal renal size and shape. No evidence of hydronephrosis. The bladder evaluation showed it to be physiologically distended, but with no evidence of any wall abnormalities or other findings in the bladder. On clinical evaluation, when she did come in, there was no evidence of elevated white count. Her hemoglobin and hematocrit are stable and not suggestive of significant anemia. PHYSICAL EXAMINATION: ABDOMEN: Soft. She has no focal tenderness, but she does describe a right lower quadrant discomfort both from anterior and posterior approaches. The bladder is not distended. She has no flank pain suggestive of renal colic. LABORATORY DATA: Chemistry showed normal BUN and creatinine of 15 and 0.7. She did have an urine culture done immediately upon admission, but there was a multiple species has contaminated specimen. She was started on Rocephin and a straight cath specimen of the urine was recovered today. At this time, I would say that the IV antibiotics could be continued, awaiting the final culture of the straight cath specimen. There appears to be no urologic intervention needed at this time and we will follow the patient's progress. Her urinalysis did show microscopic hematuria, but perhaps that was an initial specimen and we will follow up with repeat urine prior to this patient's discharge from the hospital. Kelly Hedrick MD
--- NOTE | 2017-07-01 21:09 | CP.PCM.DIS ---
Provider - Provider Date of Admission: 06/30/17 14:13 Attending physician: Hill Johnson MD Diagnosis - Discharge Diagnosis (1) Abdominal pain Status: Acute (2) Right flank pain Status: Acute Hospital Course - Lab Results Lab Results: Micro Results 06/29/17 09:30 Urine,Clean Catch Urine Culture - Final 10-50,000 CFU/ML. MULTIPLE SPECIES. PROBABLE CONTAMINATION. Most Recent Lab Values WBC 4.8 K/uL (4.8-10.8) 06/29/17 05:30 RBC 3.44 Mil/uL (3.80-5.20) L 06/29/17 05:30 Hgb 11.4 g/dL (12.0-16.0) L 06/29/17 05:30 Hct 33.1 % (34.0-47.0) L 06/29/17 05:30 MCV 96.4 fl (81.0-99.0) 06/29/17 05:30 MCH 33.1 pg (27.0-31.0) H 06/29/17 05:30 MCHC 34.3 g/dL (33.0-37.0) 06/29/17 05:30 RDW 12.6 % (11.5-14.5) 06/29/17 05:30 Plt Count 206 K/uL (130-400) 06/29/17 05:30 MPV 8.0 fl (7.2-11.7) 06/29/17 05:30 Neut % (Auto) 41.0 % (50.0-75.0) L 06/29/17 05:30 Lymph % (Auto) 46.9 % (20.0-40.0) H 06/29/17 05:30 [place] % (Auto) 10.0 % (0.0-10.0) 06/29/17 05:30 Eos % (Auto) 1.4 % (0.0-4.0) 06/29/17 05:30 Baso % (Auto) 0.7 % (0.0-2.0) 06/29/17 05:30 Neut # (Auto) 2.0 K/uL (1.8-7.0) 06/29/17 05:30 Lymph # (Auto) 2.3 K/uL (1.0-4.3) 06/29/17 05:30 [place] # (Auto) 0.5 K/uL (0.0-0.8) 06/29/17 05:30 Eos # (Auto) 0.1 K/uL (0.0-0.7) 06/29/17 05:30 Baso # (Auto) 0.0 K/uL (0.0-0.2) 06/29/17 05:30 Sodium 143 mmol/l (132-148) 06/29/17 05:30 Potassium 4.0 MMOL/L (3.6-5.0) 06/29/17 05:30 Chloride 108 mmol/L (98-107) H 06/29/17 05:30 Carbon Dioxide 24 mmol/L (22-30) 06/29/17 05:30 Anion Gap 15 (10-20) 06/29/17 05:30 BUN 15 mg/dl (7-17) 06/29/17 05:30 Creatinine 0.7 mg/dl (0.7-1.2) 06/29/17 05:30 Est GFR ( Amer) > 60 06/29/17 05:30 Est GFR (Non-Af Amer) > 60 06/29/17 05:30 Random Glucose 75 mg/dL (65-105) 06/29/17 05:30 Calcium 8.7 mg/dL (8.4-10.2) 06/29/17 05:30 Total Bilirubin 0.9 mg/dl (0.2-1.3) 06/28/17 13:00 AST 22 U/L (14-36) 06/28/17 13:00 ALT 25 U/L (9-52) 06/28/17 13:00 Alkaline Phosphatase 55 U/L (38-126) 06/28/17 13:00 Total Protein 7.4 G/DL (6.3-8.2) 06/28/17 13:00 Albumin 4.5 g/dL (3.5-5.0) 06/28/17 13:00 Globulin 2.9 gm/dL (2.2-3.9) 06/28/17 13:00 Albumin/Globulin Ratio 1.5 (1.0-2.1) 06/28/17 13:00 Triglycerides 71 mg/DL (0-149) 06/29/17 05:30 Cholesterol 155 mg/dL (0-199) 06/29/17 05:30 LDL Cholesterol Direct 83 mg/dL (0-129) 06/29/17 05:30 HDL Cholesterol 55 MG/DL (30-70) 06/29/17 05:30 Thyroxine (T4) 6.44 ug/dl (5.5-11.0) 06/29/17 05:30 Total T3 0.964 nmol/L (1.49-2.60) L 06/29/17 05:30 TSH 3rd Generation 2.55 mIU/ML (0.46-4.68) 06/29/17 05:30 Urine Color Yellow (YELLOW) 06/29/17 08:00 Urine Clarity Cloudy (Clear) 06/29/17 08:00 Urine pH 6.0 (5.0-8.0) 06/29/17 08:00 Ur Specific [place] 1.049 (1.003-1.030) H 06/29/17 08:00 Urine Protein 30 mg/dL (NEGATIVE) 06/29/17 08:00 Urine Glucose (UA) Neg mg/dL (Normal) 06/29/17 08:00 Urine Ketones 20 mg/dL (NEGATIVE) 06/29/17 08:00 Urine Blood Moderate (NEGATIVE) 06/29/17 08:00 Urine Nitrate Negative (NEGATIVE) 06/29/17 08:00 Urine Bilirubin Negative (NEGATIVE) 06/29/17 08:00 Urine Urobilinogen 0.2-1.0 mg/dL (0.2-1.0) 06/29/17 08:00 Ur Leukocyte Esterase Mod [place]/uL (Negative) 06/29/17 08:00 Urine RBC (Auto) 7 /hpf (0-3) H 06/29/17 08:00 Urine Microscopic WBC 32 /hpf (0-5) H 06/29/17 08:00 Ur Squamous Epith Cells 10 /hpf (0-5) H 06/29/17 08:00 Urine Bacteria Few (<OCC) H 06/29/17 08:00 Discharge Exam - Head Exam Head Exam: NORMAL INSPECTION Discharge Plan - Discharge Medications Prescriptions: Levofloxacin [Levaquin] 500 mg PO DAILY #7 tablet Ibuprofen [Motrin] 600 mg PO Q6 #30 tab - Follow Up Plan Condition: FAIR Disposition: HOME/ ROUTINE Instructions: Diarrhea in Adolescents and Adults, Acute Abdomen (Belly Pain), Adult (DC), Nausea and Vomiting, Adult (DC) Additional Instructions: follow up with pmd in 1 week follow up with urologist and ob-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
== END 2017-07-01 15:30 | disposition home or self-care (01) | DRG 760 ==
LOC: H.ER 11:49 → H.ERHOLD 17:09 → H.MEDSURG1 18:56 → OBSVTOIN 06-30 14:13
PROVIDERS: ADMIT Internal Medicine Pulmonary Disease; ATTEND Internal Medicine Pulmonary Disease
PROC: 3E0234Z Introduction of Serum, Toxoid and Vaccine into Muscle, Percutaneous Approach (ICD-10-PCS; principal; 2017-06-29)
DX: N83.292 Other ovarian cyst, left side (principal); N39.0 Urinary tract infection, site not specified; Z23 Encounter for immunization